=== PATIENT | female | born 2000 | race African-American/Black ===

== ENCOUNTER 2022-02-10 22:16 | Emergency (ER) | payer BC, MEDICAID ==
[~2022-02-10] VITALS: Ht 165.1 cm; Wt 77.1 kg
[2022-02-11] MEDS ORDERED: KETOROLAC TROMETH 60MG/2ML VIAL IM ONE (02:45)
[2022-02-11 03:36] VITALS: BP 155/95
== END 2022-02-11 03:39 | disposition home or self-care (01) ==
LOC: ER 22:16
DX: J68.0 Bronchitis and pneumonitis due to chemicals, gases, fumes and vapors (principal)
CPT/HCPCS: 96372; 99283; J1885